=== PATIENT | male | born 1995 | race Caucasian/White ===

== ENCOUNTER 2020-05-10 12:50 | Outpatient (CLI) | payer OTHER ==
--- NOTE | 2020-05-11 08:53 | EEG ---
DATE OF SERVICE: DESCRIPTION OF THE RECORD: Waking background is medium to high amplitude, 9 hertz alpha frequency. The patient remained awake throughout the study. Hyperventilation and photic stimulation were unremarkable. No epileptiform features were seen. IMPRESSION: This is a normal awake EEG. Job ID: [id number]
== END 2020-05-10 12:51 | disposition home or self-care (01) ==
LOC: EEG 12:50
PROVIDERS: ATTEND Nurse Practitioner Acute Care
DX: R55 Syncope and collapse (principal)
CPT/HCPCS: 95816

== ENCOUNTER 2020-08-29 13:07 | Emergency (ER) | payer OTHER ==
[2020-08-29] MEDS ORDERED: levETIRAcetam 500 MG TAB PO SCH (13:45)
--- NOTE | 2020-08-29 13:47 | CT ---
CT BRAIN WITHOUT CONTRAST: HISTORY: Headache. Seizures. Rolled off bed, injury. COMPARISON: 05/02/2020 FINDINGS: No evidence of acute infarct, hemorrhage, midline shift or abnormal extra-axial fluid collections is seen. The ventricular size is appropriate and the basilar cisterns are patent. The bony calvarium is intact. The visualized paranasal sinuses and mastoid air cells are well aerated. IMPRESSION: No CT evidence of acute intracranial process.
[2020-08-29] MEDS ORDERED: Acetaminophen 500 MG TAB ONE (14:16)
== END 2020-08-29 14:53 | disposition home or self-care (01) ==
LOC: ERS 13:07
DX: R56.9 Unspecified convulsions (principal)
CPT/HCPCS: 70450